=== PATIENT | female | born 1945 | race Two or more races ===

== ENCOUNTER 2018-12-30 11:49 | Outpatient (CLI) | payer OTHER | END 2018-12-30 16:10 | disposition home or self-care (01) | LOC: MRI 11:49 | DX: M25.562 Pain in left knee (principal) | CPT/HCPCS: 73718 ==

== ENCOUNTER 2019-06-30 08:59 | Outpatient (CLI) | payer OTHER | END 2019-06-30 09:01 | disposition home or self-care (01) | LOC: MRI 08:59 | DX: M23.305 Other meniscus derangements, unspecified medial meniscus, unspecified knee (principal) | CPT/HCPCS: 73718 ==

== ENCOUNTER 2021-03-03 09:00 | Outpatient (CLI) | payer OTHER | END 2021-03-03 09:15 | disposition home or self-care (01) | LOC: SONOGRAMA 09:00 → MRI 09:00 | PROVIDERS: ATTEND Specialist | DX: J32.0 Chronic maxillary sinusitis (principal); J01.00 Acute maxillary sinusitis, unspecified; J45.902 Unspecified asthma with status asthmaticus; R05 Cough; R07.1 Chest pain on breathing; R10.9 Unspecified abdominal pain; N94.89 Other specified conditions associated with female genital organs and menstrual cycle; R10.2 Pelvic and perineal pain; R10.84 Generalized abdominal pain; N20.0 Calculus of kidney; G44.89 Other headache syndrome; Z96.653 Presence of artificial knee joint, bilateral | CPT/HCPCS: 72158; 71046; 73560; A9575; 72149 ==

== ENCOUNTER 2021-03-11 11:39 | Outpatient (CLI) | payer OTHER | END 2021-03-11 11:46 | disposition home or self-care (01) | LOC: TOM 11:39 | PROVIDERS: ATTEND Family Medicine Geriatric Medicine | DX: K59.09 Other constipation (principal); G89.4 Chronic pain syndrome | CPT/HCPCS: 74177; Q9965 ==

== ENCOUNTER 2023-01-18 14:19 | Outpatient (CLI) | payer OTHER | END 2023-01-18 14:33 | disposition home or self-care (01) | LOC: RAD 14:19 | DX: M54.2 Cervicalgia (principal); M25.531 Pain in right wrist | CPT/HCPCS: 70540 ==

== ENCOUNTER 2023-01-18 15:54 | Emergency (ER) | payer OTHER ==
[~2023-01-18] VITALS: Ht 162.6 cm; Wt 76.7 kg
== END 2023-01-18 17:48 | disposition home or self-care (01) ==
LOC: ER 15:54
DX: S80.02XA Contusion of left knee, initial encounter (principal); W18.39XA Other fall on same level, initial encounter; Y93.89 Activity, other specified; Y92.89 Other specified places as the place of occurrence of the external cause; Y99.8 Other external cause status; Z88.6 Allergy status to analgesic agent